=== PATIENT | female | born 1995 | race Two or more races ===

== ENCOUNTER → 2024-04-24 | Outpatient (CLI) | payer MEDICAID, SELFPAY ==
--- NOTE | 2024-04-24 10:47 | XR_ITS ---
Examination: Breast ultrasound, unilateral, left complete Date and time of exam: April 24, 2024 1117 hours INDICATIONS: Palpable lump left breast noted beginning 2 weeks ago Technique: Real-time isaac scale ultrasonographic imaging performed left breast including all 4 quadrants as well as nipple retroareolar and axillary region. 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
== END | disposition home or self-care (01) ==
LOC: CDIM 10:38
PROVIDERS: Referring Provider Physician Assistant Medical; Visit Provider Physician Assistant Medical
DX: D24.9 Benign neoplasm of unspecified breast (principal); Z34.82 Encounter for supervision of other normal pregnancy, second trimester
CPT/HCPCS: 76641

== ENCOUNTER 2024-09-10 21:29 | Inpatient (IN) | payer MEDICAID, SELFPAY ==
[2024-09-10] MEDS: RINGERS LACTATED 1000 ML 1,000 ML 125 ML IV (21:30)
[2024-09-10 21:32] VITALS: BMI 30.9
[2024-09-10 22:01] VITALS: BP 133/79; PULSE 72
[2024-09-10 22:05] VITALS: TEMP 36.8
[2024-09-10 22:08] LABS: Basophils % (Auto) 0 % (0-2.5); Eosinophils % (Auto) 1 % (0-10); Hematocrit 36.5 % (36.0-46.0); Immature Granulocytes % (Auto) 0 % (0-0); Immature Granulocytes Auto 0.02 Thou/mm3 (0.00-0.00); Lymphocytes # (Auto) 1.9 Thou/mm3 (1.0-4.8); Lymphocytes % (Auto) 30 % (10-50); Mean Corpuscular HGB Conc 35.6 g/dl (31.0-37.0); Mean Corpuscular Hemoglobin 33.2 pg (25.0-35.0); Mean Corpuscular Volume 93 fL (80-100); Monocytes # (Auto) 0.6 Thou/mm3 (0.0-0.8); Monocytes % (Auto) 9 % (0-12); Neutrophils # (Auto) 3.8 Thou/mm3 (1.8-7.7); Neutrophils % (Auto) 60 % (37-80); Nucleated Red Blood Cell % 0 /100 WBC (0); Platelet Count 151 Thou/mm3 (140-440); RDW Standard Deviation 44.5 fL (36.4-46.3); Red Blood Count 3.92 Miln/mm3 (4.00-5.20); White Blood Count 6.3 Thou/mm3 (3.6-11.0)
[2024-09-10] MEDS: MISOPROSTOL 50 mCg TABLET PO (22:43)
[2024-09-10 22:56] LABS: Syphilis Nonreactive (Nonreactive)
[2024-09-11] VITALS (116 sets, daily range): BP systolic 107–197; BP diastolic 51–83; PULSE 52–110; RESP 20; TEMP 36.7–36.9; O2SAT 91–100
--- NOTE | 2024-09-11 08:19 | PD.LDHP ---
Documentation for date of: 09/11/24 OB Labor/Induct. HPI History of Present Illness Chief complaint: scheduled induction : 3 Para: 2 Term pregnancies: 2 pregnancies: 0 Living children: 2 History of Abortions: Spontaneous and Elective: 0 History of Vaginal deliveries: 2 History of sections: No History of : No Date of last menstrual period: 11/30/23 BHAVESH: 09/05/24 Gestational Age (weeks): 40 Gestational Age (days): 6 Gestational age based on last menstrual period: 40 Indication for induction: post dates History of present illness: Patient presents for scheduled induction of labor. Indication: post-date. No regular/painful ctx. No LOF. No vaginal bleeding. Normal movement. History of Present Dating criteria: LMP confirmed by 1st trimester US Adequate Care: Yes (with Dr. Mckeon's office) Ultrasounds: normal 1st trimester US, normal mid trimester US and other (growth scan at 36wk: 6lb9oz (50%ile)) Medical complications: none Narrative: G1: 2015 uncomplicated at 40wk, F [id number] G2: 2019 uncomplicated at 40wk, F [id number] G3: current, uncomplicated Labs Maternal Blood Type: O Pos Labs: Positive: Rubella Titre, Negative: RPR, Hepatitis B, HIV, Chlamydia, Gonorrhea and Group Beta Strep and Unknown: Herpes Type 1, Herpes Type 2 and Covid-19 Narrative: Starting HgbA1c 5.3 1hr glucola 134 Review of Systems Review of Systems Narrative Review of Systems: Review of Systems Systems Reviewed: All systems reviewed, normal except as documented Constitutional Constitutional: Denies body ache(s), Denies chills, Denies fever(s) and Denies headache(s) ENT Ears, Nose, Mouth, and Throat: Denies headache(s) and Denies vertigo Cardiovascular Cardiovascular: Denies chest pain, Denies palpitations, Denies dyspnea and Denies syncope Respiratory Respiratory: Denies cough, Denies dyspnea Gastrointestinal Gastrointestinal: Denies nausea and Denies vomiting Neurologic Neurologic: Denies convulsions, Denies headache(s), Denies other visual disturbances, Denies syncope and Denies vertigo Past Medical History Family History OTHER FAMILY HX: MGM T2DM Surgical History SURGICAL: Negative Section Social History SOCIAL: , good support. No tobacco/ETOH/illicit drug use Past Medical History Comments PMH COMMENT: Current BMI 31 Meds Home Medications and Allergies Home Medications ?Medication ?Instructions ?Recorded ?Confirmed ?Type vits no.124-ferrous fum 1 tab PO QDAY 09/08/19 09/08/19 History 27 mg iron-folic acid 800 mcg tablet ( Vitamin) Allergies Allergy/AdvReac Type Severity Reaction Status Date / Time No Known Allergies Allergy Verified 09/10/24 21:32 OB Exam Physical Exam Vital signs: Temp Pulse BP O2 Del Method 98.1 F 74 121/64 Room Air 09/11/24 07:30 09/11/24 07:32 09/11/24 07:32 09/11/24 04:00 Narrative: General: well developed, well nourished, no acute distress, conversant Cardiac: normal heart rate Lungs: breathing without distress Abdomen: soft, gravid, non-tender, no rebound or guarding Extremities: trace edema BLE Detailed Labor and Delivery Exam Dilation (cm): 1 Effacement (%): 50 Cervix position: posterior station: -3 Consistency: medium Presentation: Vertex Membranes: intact monitor accelerations: 15x15 monitor decelerations: None buttermaker helper variability: Moderate (11-25) Contraction frequency (min): no ctx pattern OB Results Labs 09/10/24 21:50 Labs: Short CBC 09/10/24 Range/Units 21:50 WBC 6.3 (3.6-11.0) Thou/mm3 Hgb 13.0 (12.0-16.0) g/dL Hct 36.5 (36.0-46.0) % Plt Count 151 (140-440) Thou/mm3 OB Assessment & Plan Assessment and Plan (1) Post-dates : Status: Acute Assessment and plan: Ginette is a 28yo with SIUP at 40&6wk presenting for IOL for late-term gestation. SCE: /-3. Vitals wnl, benign exam. Reassuring assessment overall. care: Good care with Dr. Mckeon's office PMhx/PNC significant for: Current BMI 31. Starting HgbA1c 5.3, 1hr glucola 134 Plan: -Admit to L&D -Establish IV, routine labs -CEFM -Regular diet [id number], then clear liquid diet in labor -Plant Production Manager/consent re: iol and -GBS status: negative -Will initiate IOL with: cytotec -Anticipate -Safe to proceed Angela Quevedo MD (1) Post-dates Qualifiers: Post-term type: 40-42 weeks gestation Qualified Code(s): O48.0 - Post-term
[2024-09-11] MEDS: RINGERS LACTATED 1000 ML 1,000 ML 125 ML IV ×3 (09:11→10:15)
[2024-09-11] MEDS: OXYTOCIN in NS 30 units 30 UNIT/500 ML BAG IV (11:07)
[2024-09-11] MEDS: fentaNYL CIT INJ 50 mCg/ML AMP 2ML 100 MCG IVP (13:37)
[2024-09-11] MEDS: OXYTOCIN in NS 20 units 20 UNIT/1,000 ML BAG 125 UNIT IV (14:40)
[2024-09-11] MEDS: METHYLERGONOVINE INJ 0.2 MG/ML VIAL IM (14:42)
[2024-09-11] MEDS: MISOPROSTOL 200 mCg TABLET 800 MCG PR (14:45)
[2024-09-11] MEDS: BENZO/LANO/ALOE (Dermoplast) 60 GM CAN 1 SPRAY TOP (14:47)
--- NOTE | 2024-09-11 15:13 | PD.LDDELS ---
Data ([place]) Data Hx Section: No : 3 Term: 2 : 0 Livin Abortions: Spontaneous & Theraputic: 0 Delivery Data ([place]) Labor Data Initiation of labor: Induction Induction/Augmentation Agent: Cytotec-PO and Pitocin ROM date: 09/11/24 ROM time: 12:20 Amniotic membrane rupture type: Artificial Amniotic fluid description: Blood Tinged Delivery Data Onset of labor date: 09/11/24 Onset of labor time: 11:00 Complete dilation date: 09/11/24 Complete dilation time: 14:10 delivery date: 09/11/24 [place] delivery time: 14:36 Placenta delivery date: 09/11/24 Placenta delivery time: 14:37 Stage 1 total time: Labor - Stage 1 Duration 3 hours and 10 minutes Delivered by: Angela Quevedo Delivery nurse: Meredith Brand RN [place] nurse: Mahin Regan RN Television Announcer at delivery: Yes (Catherine) Support person(s) at delivery: fob Delivery Method Delivery method: Normal Vaginal Delivery Presentation: Vertex Anesthesia Type Anesthesia Type: Epidural Placenta Placenta delivery description: Spontaneous Cord blood sent to lab: Yes cord blood collection: Cord Blood Type Episiotomy Episiotomy description: None EBL Estimated blood loss (ml): 300 Umbilical Cord cord description: 3 Vessels Additional Procedures Ginette is a 28yo s/p uncomplicated at 40&6wk after undergoing IOL for late-term gestation, delivering at 1436 on 09/11/2024. On presentation, SCE was 1/50/-3. She progressed with cytotec and then pitocin augmentation and AROM to C/C/0 at which point she began pushing. She was able to receive an epidural. With good maternal pushing efforts, infant's head delivered OA and restituted LISA. Left anterior shoulder did not initially deliver, so infant immediately rotated counter-clockwise and right anterior shoulder then easily delivered followed by posterior shoulder and corpus. had spontaneous cry and was vigorous. Apgars 8/9. Infant placed on maternal abdomen where nose/mouth were suctioned and infant dried/stimulated. After approximately 1 minute, cord was clamped x2 and cut by FOB. Cord blood collected for typing. With fundal massage and cord traction, placenta delivered spontaneously and intact with 3 vessel centrally inserted cord. Bimanual massage performed and IV pitocin given per protocol with fundus then firm at u-2cm and hemostasis noted. Inspection of perineum and vagina revealed a small 1st degree laceration which was repaired with 2 figure of 8's using 3-0 vicryl- total reapproximation and hemostasis achieved. Small trickle of blood with fundal massage, so sweep just within cervix/GABINO performed which retrieved a modest amount of clot. Bimanual massage performed. 0.2mg IM methergine given with observed hemostasis after. Cytotec 800mcg SC placed for prophylaxis against bleeding given large size. All counts correct x2. Mom and were doing well when I left the room. Angela Quevedo MD Complications Complications: none [place] Data ([place]) Data 's gender: Male Identification band number: [id number] weight (gms): 4920 g Weight (pounds): 10 lbs and 13.5 ozs [place] length: 54.61 cm 1 minute: 8 5 minutes: 9
[2024-09-11] MEDS: IBUPROFEN TAB 400 MG TABLET 800 MG PO (17:23)
[2024-09-11] MEDS: DOCUSATE SOD 100 MG CAPSULE PO (20:52)
[2024-09-11 21:21] LABS: Basophils % (Auto) 0 % (0-2.5); Eosinophils % (Auto) 0 % (0-10); Hematocrit 36.5 % (36.0-46.0); Immature Granulocytes % (Auto) 0 % (0-0); Immature Granulocytes Auto 0.02 Thou/mm3 (0.00-0.00); Lymphocytes # (Auto) 1.3 Thou/mm3 (1.0-4.8); Lymphocytes % (Auto) 14 % (10-50); Mean Corpuscular HGB Conc 35.6 g/dl (31.0-37.0); Mean Corpuscular Hemoglobin 33.5 pg (25.0-35.0); Mean Corpuscular Volume 94 fL (80-100); Monocytes # (Auto) 0.8 Thou/mm3 (0.0-0.8); Monocytes % (Auto) 8 % (0-12); Neutrophils # (Auto) 7.5 Thou/mm3 (1.8-7.7); Neutrophils % (Auto) 77 % (37-80); Nucleated Red Blood Cell % 0 /100 WBC (0); Platelet Count 150 Thou/mm3 (140-440); RDW Standard Deviation 44.8 fL (36.4-46.3); Red Blood Count 3.88 Miln/mm3 (4.00-5.20); White Blood Count 9.7 Thou/mm3 (3.6-11.0)
[2024-09-12 00:09] VITALS: BP 112/64; PULSE 69; RESP 16; TEMP 36.8; O2SAT 97
[2024-09-12 03:46] VITALS: BP 123/70; PULSE 62; RESP 18; TEMP 36.6; O2SAT 96
[2024-09-12] MEDS: IBUPROFEN TAB 400 MG TABLET 800 MG PO (07:15)
[2024-09-12 07:30] VITALS: BP 120/74; PULSE 62; RESP 18; TEMP 36.7; O2SAT 98
--- NOTE | 2024-09-12 07:42 | PD.LDDS ---
DS: Providers Provider Date of admission: 09/10/24 21:29 Primary care physician: Physician No Primary/Family Admitting Provider: Angela Quevedo MD Attending Provider on Admission: Angela Quevedo MD Consults: 09/11/24 14:55 Referral Routine Comment: Attending Provider on DC: Angela Quevedo MD Discharging Provider: Angela Quevedo MD DS: Diagnosis Discharge Diagnosis (1) care following vaginal delivery: Status: Acute (2) Post-dates : Status: Acute Problem List Completed Was Problem List Reviewed/Reconciled?: Yes Summary/Hosp Course Brief History: Patient presents for scheduled induction of labor. Indication: post-date. No regular/painful ctx. No LOF. No vaginal bleeding. Normal movement. Ginette is a 28yo [id number] s/p uncomplicated at 40&6wk after undergoing IOL for late-term, delivering at 1436 on 09/11/24. She has had an uncomplicated course, meeting all milestones and feels ready for discharge home. She is ambulating without lightheadedness, tolerating regular diet no n/v, spontaneously voiding without issue. She has no chest pain or shortness of breath. No fevers or chills. Minimal, appropriate discomfort. Vitals normal, benign exam. Hemodynamically stable with no evidence of infection. PP Hgb 13. Peripartum Data Delivery Method: Normal Vaginal Delivery Episiotomy Description: None Status at Discharge Functional status at discharge: independent ambulation Overall status at discharge: patient is back to baseline Time Spent with Patient Time attestation: Total time spent providing and/or coordinating discharge services: Exam Vital Signs Temp Pulse Resp BP Pulse Ox O2 Del Method 97.8 F 62 18 123/70 96 Room Air 09/12/24 03:46 09/12/24 03:46 09/12/24 03:46 09/12/24 03:46 09/12/24 03:46 09/12/24 03:46 Narrative Exam General: well developed, well nourished, no acute distress, conversant Cardiac: normal heart rate Lungs: breathing without distress Abdomen: soft, post-gravid, non-tender, no rebound or guarding, Fundus firm at u-3cm. Extremities: no pain with palpation of calves, 1+ edema of BLE Discharge Plan Plan Patient Disposition: HOME (Self Care) Patient condition on transfer: Stable Prescriptions/Referrals Prescriptions/Med Rec: New docusate sodium 100 mg Capsule 100 mg PO BID 10 Days Qty: 20 0RF ibuprofen 800 mg tablet 800 mg PO Q8H PRN (Reason: See Comments) 10 Days Qty: 20 0RF Continued Vitamin 27 mg iron- 800 mcg Tablet 1 tab PO QDAY Discontinued ibuprofen 800 mg tablet 800 mg PO TID Qty: 30 0RF Referrals: No Primary/Family,Physician [Primary Care Provider] - Patient/Caregiver Discharge Instructions Discharge Activity: activity as tolerated and other Other Discharge Activity Instructions:: vaginal rest and no heavy lifting for 6 weeks Other Discharge Diet Instructions: regular diet Education Materials: After a Vaginal Print Language: Icelandic Activity Restrictions/Additional Instructions: follow up with your obgyn in 2-4 weeks, call clinic to schedule appointment Stand Alone Forms: [facility] Award Info., Patient Portal Info Letter Discharge Order Discharge Orders: Discharge (Routine); Ordered 09/12/24 Ordered By: Angela Quevedo Planned Discharge Date 09/12/24 (2) Post-dates Qualifiers: Post-term type: 40-42 weeks gestation Qualified Code(s): O48.0 - Post-term
[2024-09-12] MEDS: DOCUSATE SOD 100 MG CAPSULE PO (08:07)
[2024-09-12 11:05] VITALS: BP 116/68; PULSE 62; RESP 18; TEMP 36.7; O2SAT 97
== END 2024-09-12 15:48 | disposition home or self-care (01) | DRG 560 ==
LOC: S4SX 09-11 14:57 → S4NX 09-11 17:22
PROVIDERS: Admitting Provider Obstetrics & Gynecology; Visit Provider Obstetrics & Gynecology
DX: O48.0 Post-term pregnancy (principal); Z37.0 Single live birth; Z3A.40 40 weeks gestation of pregnancy; O70.0 First degree perineal laceration during delivery
CPT/HCPCS: 36415; 59409; 85025; 86780; 86850; 86900; 86901; 94762; J2210; J2590; J2795; J3010; J7120; S0191; A9270

== ENCOUNTER → 2024-12-30 | Outpatient (CLI) | payer MEDICAID, SELFPAY ==
--- NOTE | 2024-12-30 16:00 | XR_ITS ---
Examination: Breast ultrasound, unilateral, left complete Date and time of exam: December 30, 2024, 1611 hours INDICATIONS: Palpable lump left breast noticed beginning 6 months ago Technique: Real-time isaac scale ultrasonographic imaging performed left breast including all 4 quadrants as well as nipple retroareolar and axillary region. Findings: 2:00 nodule lobular margins 17 x 17 mm 11:00 cyst 4 x 4 mm Axillary lymph node with lobular margins IMPRESSION: BI-RADS 4 suspicious nodule at 2 o'clock position left breast, partially indistinct margins, biopsy is needed to exclude breast carcinoma, this nodule is amenable to ultrasound-guided breast biopsy for diagnosis
== END | disposition home or self-care (01) ==
PROVIDERS: PCP Specialist; Referring Provider Physician Assistant Medical; Visit Provider Physician Assistant Medical
DX: N63.21 Unspecified lump in the left breast, upper outer quadrant (principal)
CPT/HCPCS: 76641